=== PATIENT | female | born 1965 | race Hispanic/Latino ===

== ENCOUNTER 2021-02-01 00:36 | Inpatient (IN) | payer SELFPAY ==
[2021-02-01] VITALS (7 sets, daily range): BP systolic 104–134; BP diastolic 63–72
[~2021-02-01] VITALS: Ht 154.9 cm; Wt 72.4 kg
[2021-02-01 04:17] LABS: ABG BASE EXCESS -1.8 mmol/L (-2.0-3.0); ABG HCO3 21.9 mmol/L (21.0-28.0); ABG OXYGEN SATURATION 92.6 % (95.0-99.0); ABG PCO2 35 mmHg (32-45)
[2021-02-01 04:46] LABS: BASOPHILS % (AUTO) 0.2 % (0.0-5.0); HEMATOCRIT 41.5 % (36-48); LYMPHOCYTES % (AUTO) 25.9 % (21.0-51.0); MEAN CORPUSCULAR HEMOGLOBIN 28.4 pg (27.0-33.0); MEAN CORPUSCULAR HGB CONC 34.7 g/dL (32.0-36.0); MEAN CORPUSCULAR VOLUME 81.9 fL (79-99); MONOCYTES % (AUTO) 6.5 % (3.0-13.0); NEUTROPHILS % (AUTO) 67.2 % (40.0-77.0); PLATELET COUNT (AUTO) 218 K/uL (130-400); RED BLOOD CELL COUNT(AUTO) 5.07 MIL/uL (4.00-5.50); RED CELL DISTRIBUTION WIDTH 12.9 % (11.0-15.5); WHITE BLOOD COUNT (AUTO) 4.3 K/uL (4.8-10.8)
[2021-02-01 05:18] LABS: ALBUMIN 3.6 g/dL (3.5-5.0); BILIRUBIN,DIRECT 0.2 mg/dL (0.0-0.3); BILIRUBIN,TOTAL 0.5 mg/dL (0.2-1.0); CREATININE 0.7 mg/dL (0.5-1.5); CRP QUANTITATIVE 22.1 mg/L (0.00-9.0); POTASSIUM 3.3 mmol/L (3.5-5.1)
[2021-02-01 05:58] LABS: ERYTHROCYTE SEDIMENTATION RATE 23 MM/HR (0-30)
[2021-02-01] MEDS ORDERED: KCL 20 MEQ ERTAB PO ONE ×2 (06:00)
[2021-02-01] MEDS ORDERED: ONDANSETRON 4MG INJ IV PRN (07:30)
[2021-02-01] MEDS ORDERED: LIDOCAINE HCL-MPF 1% 2ML VIAL IV PRN (07:30)
[2021-02-01] MEDS ORDERED: POTASSIUM CHLORIDE 10% ELIXIR 20 MEQ/15 ML UDCUP PO PRN (07:30)
[2021-02-01] MEDS ORDERED: LACTULOSE 20 GM/30 ML UDCUP PO PRN (07:30)
[2021-02-01] MEDS ORDERED: ACETAMINOPHEN 325 MG TAB PO PRN ×2 (07:30)
[2021-02-01] MEDS ORDERED: PHARMACY COMMUNICATION**REMDESIVIR MISC SCH (07:30)
[2021-02-01] MEDS ORDERED: POTASSIUM CHLORIDE 10MEQ/100ML 100 ML IV PRN (07:30)
[2021-02-01 08:30] LABS: CHOLESTEROL 131 mg/dL (<200); HDL CHOLESTEROL 30 mg/dL (35-85); LDL DIRECT 93 mg/dL (0-99); TRIGLYCERIDES 77 mg/dL (30-200)
[2021-02-01] MEDS: ENOXAPARIN SODIUM 40 MG/0.4 ML SYRINGE SQ SCH (10:31)
[2021-02-01] MEDS: FAMOTIDINE 20MG TAB PO SCH ×2 (10:31→22:15)
[2021-02-01] MEDS: ALBUTEROL INHALER 90MCG/INH IH PRN ×2 (10:31→19:15)
[2021-02-01] MEDS: DEXAMETHASONE SOD PHOSPHATE 4 MG/ML 1ML VIAL IVP SCH (10:31)
[2021-02-02 06:40] VITALS: BP 134/62
[2021-02-02 07:36] LABS: HEMATOCRIT 38.4 % (36-48); LYMPHOCYTES % (AUTO) 18.6 % (21.0-51.0); MEAN CORPUSCULAR HEMOGLOBIN 28.1 pg (27.0-33.0); MEAN CORPUSCULAR HGB CONC 34.1 g/dL (32.0-36.0); MEAN CORPUSCULAR VOLUME 82.2 fL (79-99); MONOCYTES % (AUTO) 8.5 % (3.0-13.0); NEUTROPHILS % (AUTO) 72.6 % (40.0-77.0); PLATELET COUNT (AUTO) 233 K/uL (130-400); RED BLOOD CELL COUNT(AUTO) 4.67 MIL/uL (4.00-5.50); RED CELL DISTRIBUTION WIDTH 12.8 % (11.0-15.5); WHITE BLOOD COUNT (AUTO) 3.2 K/uL (4.8-10.8)
[2021-02-02 07:59] LABS: ALBUMIN 3.2 g/dL (3.5-5.0); BILIRUBIN,TOTAL 0.3 mg/dL (0.2-1.0); CREATININE 0.5 mg/dL (0.5-1.5); CRP QUANTITATIVE 10.1 mg/L (0.00-9.0); POTASSIUM 3.5 mmol/L (3.5-5.1); TOTAL PROTEIN, SERUM 7.3 g/dL (6.0-8.3)
[2021-02-02] MEDS: DEXAMETHASONE SOD PHOSPHATE 4 MG/ML 1ML VIAL IVP SCH (08:46)
[2021-02-02] MEDS: FAMOTIDINE 20MG TAB PO SCH ×2 (08:46→20:43)
[2021-02-02] MEDS: ENOXAPARIN SODIUM 40 MG/0.4 ML SYRINGE SQ SCH (08:47)
[2021-02-02] MEDS: ALBUTEROL INHALER 90MCG/INH IH PRN ×2 (08:49→13:00)
[2021-02-02 08:58] VITALS: BP 125/52
[2021-02-02] MEDS: KCL 20 MEQ ERTAB PO PRN (12:11)
[2021-02-02 14:17] VITALS: BP 117/68
[2021-02-02 17:37] VITALS: BP 114/50
[2021-02-02 19:59] VITALS: BP 107/33
[2021-02-02 22:42] VITALS: BP 126/88
[2021-02-03 03:56] VITALS: BP 103/53
[2021-02-03 03:59] LABS: EOSINOPHILS % (AUTO) 1.5 % (0.0-8.0); HEMATOCRIT 35.4 % (36-48); LYMPHOCYTES % (AUTO) 14.5 % (21.0-51.0); MEAN CORPUSCULAR HEMOGLOBIN 28.1 pg (27.0-33.0); MEAN CORPUSCULAR HGB CONC 34.2 g/dL (32.0-36.0); MEAN CORPUSCULAR VOLUME 82.3 fL (79-99); MONOCYTES % (AUTO) 5.8 % (3.0-13.0); NEUTROPHILS % (AUTO) 77.9 % (40.0-77.0); PLATELET COUNT (AUTO) 302 K/uL (130-400); WHITE BLOOD COUNT (AUTO) 6.9 K/uL (4.8-10.8)
[2021-02-03 04:17] LABS: ALANINE AMINOTRANSFERASE 200 U/L (12-78); ALBUMIN 2.9 g/dL (3.5-5.0); ASPARTATE AMINOTRANSFERASE 153 U/L (10-37); BILIRUBIN,TOTAL 0.3 mg/dL (0.2-1.0); CARBON DIOXIDE 24 mmol/L (21-32); CHLORIDE 105 mmol/L (101-111); CREATININE 0.7 mg/dL (0.5-1.5); GLOMERULAR FILTR. RATE CALC 93 mL/min (>60); GLUCOSE,RANDOM 189 mg/dL (70-105); LACTATE DEHYDROGENASE 240 U/L (81-234); POTASSIUM 3.5 mmol/L (3.5-5.1); SODIUM SERUM 137 mmol/L (136-145); TOTAL PROTEIN, SERUM 6.7 g/dL (6.0-8.3); UREA NITROGEN, BLOOD 12 mg/dL (7-18)
[2021-02-03 04:18] LABS: CRP QUANTITATIVE < 2.00 mg/L (0.00-9.0)
[2021-02-03 09:50] VITALS: BP 116/66
[2021-02-03] MEDS: FAMOTIDINE 20MG TAB PO SCH ×2 (10:10→21:28)
[2021-02-03] MEDS: ENOXAPARIN SODIUM 40 MG/0.4 ML SYRINGE SQ SCH (10:11)
[2021-02-03 11:27] VITALS: BP 105/60
[2021-02-03 17:01] VITALS: BP 108/70
[2021-02-03 20:00] VITALS: BP 114/64
[2021-02-03 23:34] VITALS: BP 95/54
[2021-02-04 04:00] VITALS: BP 108/55
[2021-02-04 04:19] LABS: EOSINOPHILS % (AUTO) 0.2 % (0.0-8.0); HEMATOCRIT 37.2 % (36-48); LYMPHOCYTES % (AUTO) 26.7 % (21.0-51.0); MEAN CORPUSCULAR HEMOGLOBIN 28.1 pg (27.0-33.0); MEAN CORPUSCULAR HGB CONC 33.9 g/dL (32.0-36.0); MONOCYTES % (AUTO) 8.6 % (3.0-13.0); NEUTROPHILS % (AUTO) 64.1 % (40.0-77.0); PLATELET COUNT (AUTO) 338 K/uL (130-400); RED BLOOD CELL COUNT(AUTO) 4.48 MIL/uL (4.00-5.50); RED CELL DISTRIBUTION WIDTH 13.1 % (11.0-15.5); WHITE BLOOD COUNT (AUTO) 5.2 K/uL (4.8-10.8)
[2021-02-04 04:40] LABS: BILIRUBIN,TOTAL 0.5 mg/dL (0.2-1.0); CREATININE 0.7 mg/dL (0.5-1.5); CRP QUANTITATIVE 25.4 mg/L (0.00-9.0); POTASSIUM 3.4 mmol/L (3.5-5.1); TOTAL PROTEIN, SERUM 6.6 g/dL (6.0-8.3)
[2021-02-04] MEDS: ENOXAPARIN SODIUM 40 MG/0.4 ML SYRINGE SQ SCH (08:02)
[2021-02-04] MEDS: FAMOTIDINE 20MG TAB PO SCH (08:02)
[2021-02-04] MEDS: KCL 20 MEQ ERTAB PO PRN ×2 (08:10→11:21)
[2021-02-04 08:15] VITALS: BP 125/78
[2021-02-04] MEDS ORDERED: ALBU8.5H8 IH (10:03)
[2021-02-04 11:55] VITALS: BP 117/47
== END 2021-02-04 18:24 | disposition home or self-care (01) | DRG 177 ==
LOC: EDH 00:36 → OBSVTOIN 00:37 → EDHIP 00:37 → 4AH 02-02 22:24
PROVIDERS: ADMIT Hospitalist; ATTEND Hospitalist
DX: U07.1 COVID-19 (principal); J12.82 Pneumonia due to coronavirus disease 2019; J96.01 Acute respiratory failure with hypoxia; E87.1 Hypo-osmolality and hyponatremia; K75.9 Inflammatory liver disease, unspecified; D72.819 Decreased white blood cell count, unspecified; E66.9 Obesity, unspecified; Z68.29 Body mass index [BMI] 29.0-29.9, adult; E87.6 Hypokalemia; R74.02 Elevation of levels of lactic acid dehydrogenase [LDH]; R74.8 Abnormal levels of other serum enzymes
CPT/HCPCS: 36415; 36600; 71045; 76705; 80048; 80053; 80061; 80076; 81025; 82550; 82728; 82803; 83605; 83615; 83735; 84145; 84484; 85025; 85378; 85651; 86140; 87040; 87635; 87804; 93005; 97039; C9803; G0378; J1100; J1650

== ENCOUNTER 2021-07-04 01:38 | Emergency (ER) | payer OTHER ==
[~2021-07-04] VITALS: Ht 154.9 cm; Wt 83.9 kg
[~2021-07-04 01:38] MED LIST: ALBU8.5H8 IH
[2021-07-04] MEDS ORDERED: IBUPROFEN 600 MG TABLET ONE (07:49)
[2021-07-04] MEDS ORDERED: HYDROCODONE/ACETAMINOPHEN 5/325 MG TAB ONE (07:49)
[2021-07-04 07:52] VITALS: BP 164/68
[2021-07-04] MEDS ORDERED: IBUP-2070 PO (07:58)
[2021-07-04] MEDS ORDERED: CYCL10TA16 PO (07:58)
[2021-07-04] MEDS ORDERED: IBUPROFEN 600 MG TABLET PO ONE (08:00)
[2021-07-04] MEDS ORDERED: HYDROCODONE/ACETAMINOPHEN 5/325 MG TAB PO ONE (08:00)
== END 2021-07-04 08:31 | disposition home or self-care (01) ==
LOC: EDH 01:38
DX: R10.9 Unspecified abdominal pain (principal); M54.50 Low back pain, unspecified; M79.602 Pain in left arm; Z79.1 Long term (current) use of non-steroidal anti-inflammatories (NSAID); Z79.899 Other long term (current) drug therapy; V49.49XA Driver injured in collision with other motor vehicles in traffic accident, initial encounter; Y93.89 Activity, other specified; Y92.89 Other specified places as the place of occurrence of the external cause; Y99.8 Other external cause status

== ENCOUNTER 2021-07-06 16:48 | Emergency (ER) | payer OTHER ==
[~2021-07-06] VITALS: Ht 154.9 cm; Wt 83.9 kg
[~2021-07-06 16:48] MED LIST changes: +CYCL10TA16 PO; +IBUP-2070 PO
[2021-07-06 19:16] VITALS: BP 123/60
[2021-07-06] MEDS ORDERED: HYDROCODONE/ACETAMINOPHEN 10/325 MG TAB ONE (19:27)
[2021-07-06] MEDS ORDERED: DIAZEPAM 5 MG TABLET ONE (19:27)
[2021-07-06] MEDS ORDERED: HYDROCODONE/ACETAMINOPHEN 10/325 MG TAB PO ONE (19:30)
[2021-07-06] MEDS ORDERED: DIAZEPAM 5 MG TABLET PO ONE (19:30)
[2021-07-06] MEDS ORDERED: ACET-2247 PO (19:31)
[2021-07-06] MEDS ORDERED: IBUP-1552 PO (19:31)
== END 2021-07-06 19:45 | disposition home or self-care (01) ==
LOC: EDH 16:48
DX: S46.912A Strain of unspecified muscle, fascia and tendon at shoulder and upper arm level, left arm, initial encounter (principal); X58.XXXA Exposure to other specified factors, initial encounter; Y93.89 Activity, other specified; Y92.89 Other specified places as the place of occurrence of the external cause; Y99.8 Other external cause status
CPT/HCPCS: 73030; 73060

== ENCOUNTER 2022-07-24 15:39 | Emergency (ER) | payer OTHER ==
[~2022-07-24] VITALS: Ht 154.9 cm; Wt 79.4 kg
[~2022-07-24 15:39] MED LIST changes: +ACET-2247 PO; +IBUP-1552 PO
[2022-07-24] MEDS ORDERED: ACETAMINOPHEN WITH CODEINE 1 TAB TAB PO ONE (16:30)
[2022-07-24] MEDS ORDERED: CYCL10TA16 PO (17:52)
[2022-07-24] MEDS ORDERED: IBUP-2070 PO (17:52)
[2022-07-24 18:33] VITALS: BP 118/69
== END 2022-07-24 18:34 | disposition home or self-care (01) ==
LOC: EDH 15:39
DX: S60.222A Contusion of left hand, initial encounter (principal); S00.83XA Contusion of other part of head, initial encounter; Z79.1 Long term (current) use of non-steroidal anti-inflammatories (NSAID); Z79.899 Other long term (current) drug therapy; W01.198A Fall on same level from slipping, tripping and stumbling with subsequent striking against other object, initial encounter; Y93.89 Activity, other specified; Y92.89 Other specified places as the place of occurrence of the external cause; Y99.8 Other external cause status
CPT/HCPCS: 70450; 72125; 73120